=== PATIENT | female | born 1995 | race Caucasian/White ===

== ENCOUNTER 2018-11-05 11:01 | Emergency (ER) | payer SELFPAY ==
[~2018-11-05] VITALS: Ht 162.6 cm; Wt 71.2 kg
--- NOTE | 2018-11-05 11:30 | NUR ---
patient came in due to bloody stool x 5 months on and off. Ambulatory, denies any pain. On room air, breathing evenly and unlabored. Kept comfortable, will continue to monitor accordingly.
[2018-11-05 11:48] LABS: BASOPHILS # (AUTO) 0.1 /CMM (0.0-0.2); BASOPHILS % (AUTO) 0.9 % (0.0-2.0); EOSINOPHILS % (AUTO) 3.8 % (0.0-6.0); HEMATOCRIT 43 % (33-45); HEMOGLOBIN 14.4 g/dL (11.5-14.8); LYMPHOCYTES # (AUTO) 1.7 /CMM (0.8-4.8); MEAN CORPUSCULAR HGB CONC 34 g/dl (31.0-36.0); MEAN CORPUSCULAR VOLUME 90 fL (82-100); MONOCYTES # (AUTO) 0.5 /CMM (0.1-1.30); MONOCYTES % (AUTO) 7.8 % (2.0-12.0); NEUTROPHILS # (AUTO) 3.4 /CMM (1.8-8.9); NEUTROPHILS % (AUTO) 58.5 % (43.0-81.0); PLATELET COUNT (AUTO) 302 /CMM (150-450); RED BLOOD CELL COUNT(AUTO) 4.71 MIL/uL (4.0-5.2); WHITE BLOOD COUNT (AUTO) 5.8 K/uL (4.3-11.0)
[2018-11-05 12:02] LABS: ALBUMIN 3.9 g/dL (3.4-5.0); BILIRUBIN,DIRECT 0.1 mg/dL (0.0-0.2); BILIRUBIN,TOTAL 0.3 mg/dL (0.2-1.0); CALCIUM, SERUM 9.7 mg/dL (8.5-10.1); CREATININE 0.8 mg/dL (0.6-1.3); POTASSIUM 4.3 mmol/L (3.5-5.1)
[2018-11-05 14:10] VITALS: BP 120/71
--- NOTE | 2018-11-05 14:11 | NUR ---
Patient discharged to home in stable condition. Written and verbal after care instructions given. Patient verbalizes understanding of instruction.
== END 2018-11-05 14:10 | disposition home or self-care (01) ==
LOC: ER 11:07
DX: A08.8 Other specified intestinal infections (principal)
CPT/HCPCS: 36415; 80048-TC; 80076-TC; 85025-TC; 85652-TC; 85730-TC; 86140-TC

== ENCOUNTER → 2019-08-10 | Emergency (ER) | payer OTHER ==
[~2019-08-10] VITALS: Ht 162.6 cm; Wt 72.6 kg
[2019-08-10 16:17] VITALS: BP 139/73
--- NOTE | 2019-08-10 16:33 | NUR ---
Jaspreet Hooper M.D., [facility] – [place] [facility] IS [place]. MALDONADO.
== END | disposition home or self-care (01) ==
LOC: ER 16:12
DX: H33.21 Serous retinal detachment, right eye (principal)
CPT/HCPCS: 70450-TC